=== PATIENT | male | born 1965 | race Hispanic/Latino ===

== ENCOUNTER 2016-08-05 16:26 | Outpatient (CLI) | payer OTHER ==
[2016-08-05 18:16] LABS: Alanine Aminotransferase 18 units/L (7-56); Albumin 4.3 g/dL (3.9-5); Albumin/Globulin Ratio 1.8 %; Alkaline Phosphatase 80 units/L (35-129); Anion Gap 16 mmol/L; BUN/Creatinine Ratio 25.71; Bilirubin,Total 0.3 mg/dL (0.1-1.2); Blood Urea Nitrogen 18 mg/dL (9-20); Calcium 8.4 mg/dL (8.4-10.2); Carbon Dioxide 25 mmol/L (22-30); Chloride 101.5 mmol/L (98-107); Glucose 90 mg/dL (75-100); Sodium 138 mmol/L (137-145); Total Protein 6.7 g/dL (6.3-8.2)
--- NOTE | 2016-08-06 09:11 | Magnetic Resonance Report ---
MRI LUMBAR SPINE WITH AND WITHOUT CONTRAST HISTORY: Spinal fracture, back pain. TECHNIQUE: axial T1, T2. sagittal T1,T2, STIR. Post contrast T1 fat-sat axial and sagittal planes. COMPARISON: None. FINDINGS: The conus terminates at L1. No signal abnormality or mass. The cauda equina is within normal limits. No central canal stenosis. There is mild anterior wedging of L1. A chronic superior endplate fracture at L1 with 10-20% loss of height is suspected. There is no evidence for acute fracture. No additional chronic fractures. Mild Modic degenerative endplate changes are noted at L1-2. There is mild diffuse disc desiccation and narrowing. L4-5 and L5-S1 are the most affected levels. Mild diffuse facet arthropathy. The paraspinal soft tissues are unremarkable. L1-2: No significant abnormality. L2-3: No significant abnormality. Mild facet arthropathy. L3-4: No significant abnormality. Moderate facet arthropathy. L4-5: Mild to moderate posterior bulging disc and focal midline annular tear are identified. Mild facet arthropathy. No central canal stenosis or significant neural foraminal narrowing. L5-S1: A mild posterior bulging disc lateralizes to the left side. A midline a left paracentral annular tear and moderate disc protrusion effaces the anterior thecal sac. No central canal stenosis. No significant neural foraminal narrowing. There is focal enhancement at the L5-S1 annular tear following IV gadolinium consistent with granulation tissue/healing. IMPRESSION: Chronic L1 superior endplate fracture as outlined above. No acute fracture. Lumbar spondylosis. Focal annular tears and a small to moderate disc bulges at L4-5 and L5-S1 as outlined above.
== END 2016-08-05 16:27 | disposition home or self-care (01) ==
LOC: MRI 16:26
PROVIDERS: ATTEND Orthopaedic Surgery Orthopaedic Trauma
DX: M48.56XA Collapsed vertebra, not elsewhere classified, lumbar region, initial encounter for fracture (principal); M47.896 Other spondylosis, lumbar region; M51.37 Other intervertebral disc degeneration, lumbosacral region; M12.88 Other specific arthropathies, not elsewhere classified, other specified site
CPT/HCPCS: 36415; 72158; 80053; A9577